=== PATIENT | female | born 1970 | race Caucasian/White ===

== ENCOUNTER 2016-11-28 15:21 | Emergency (ER) | payer OTHER ==
[2016-11-28 15:47] VITALS: BP 149/99; PULSE 70; RESP 18; TEMP 98.1; O2SAT 98
[2016-11-28 15:52] LABS: LEUKOCYTE ESTERASE,URINE NEGATIVE (NEGATIVE); NITRITE,URINE NEGATIVE (NEGATIVE); PH,URINE 5.5 (5.0-7.5)
[2016-11-28 15:53] LABS: COLOR PALE YELLOW
[2016-11-28 16:00] LABS: RBC,URINE OCCASIONAL /hpf (0-3); WBC,URINE NONE SEEN /hpf (0-3)
--- NOTE | 2016-11-28 16:20 | UCPHY ---
H & P Patient Type: Established Chief Complaint Nursing Narrative: low back pain started on , thinks may be a UTI, denies fevers or n/v, denies recent injury or trauma Time Seen by Provider: 11/28/16 15:40 HPI/ROS: On this patient reports onset of low back pain/flank pain achy and sharp in nature, 6 days prior to this visit. She thinks that was initially on 1 side but does recall which side and now it is bilateral. She has partial relief from ibuprofen and notes no other exacerbating factors. Currently the pain is 6/10 nonradiating. She had similar symptoms diagnosed with pyelonephritis here a few months ago so she came in for further evaluation. She notes no other associated symptoms. ROS: No fevers. No other constitutional symptoms. No recent trauma. HEENT: No complaints pulmonary: No complaints including no cough cardiovascular: No lightheadedness GI: No nausea or vomiting. : No dysuria frequency urgency. She has noticed any hematuria. Her last menstrual time timing was normal-2 weeks ago. 10 point ROS is otherwise negative. Source: Patient Exam Limitations: No limitations - Personal History Tetanus Vaccine Date: unsure - Medical/Surgical History PMH: Pyelonephritis C diff colitis after Cipro Hx Asthma: No Hx Chronic Respiratory Disease: No Hx Diabetes: No Hx Cardiac Disease: No Hx Renal Disease: No Hx Cirrhosis: No Hx Alcoholism: No Hx HIV/AIDS: No Hx Splenectomy or Spleen Trauma: No Other PMH: mastopexy, left wrist surg - Family History Significant Family History: No pertinent family hx - Social History Smoking Status: Never smoked Alcohol Use: Occasionally Drug Use: None Additional Social History: She went on a cruise and returned on November 19 - Physical Exam Exam: General Appearance: Alert, no distress. Eyes: Pupils equal and round no pallor or injection. ENT, Mouth: Mucous membranes moist. Respiratory: There are no retractions, lungs are clear to auscultation. Cardiovascular: Regular rate and rhythm. Gastrointestinal: Abdomen is soft and nontender, no masses, bowel sounds normal. Back: Positive lumbar versus CVA tenderness bilaterally. No significant midline tenderness. Straight leg raise is negative bilaterally. Neurological: Alert. GCS 15. Normal sensation bilateral lower extremities 5/5 strength in great toe dorsiflexion and plantar flexion bilaterally. She maintains 2+ symmetric patellar and Achilles DTRs bilaterally. Skin: Warm and dry, no rashes. Musculoskeletal: Neck is supple nontender. Extremities are symmetrical, full range of motion. Psychiatric: Mood and affect normal DIFFERENTIAL DIAGNOSIS: After history and physical exam differential diagnosis was considered for pyelonephritis, low back strain, ureteral stone, disc herniation Constitutional: Initial Vital Signs Temperature (C) 36.7 C 11/28/16 15:35 Heart Rate 70 11/28/16 15:35 Respiratory Rate 18 11/28/16 15:35 Blood Pressure 149/99 H 11/28/16 15:35 O2 Sat (%) 98 11/28/16 15:35 O2 Delivery Mode Room Air Allergies/Adverse Reactions: metronidazole [From Flagyl] Allergy (Verified 11/28/16 15:43) Home Medications: Medication Instructions Recorded Hydrocodone/APAP 5/325 [[place] 1 - 2 tab PO Q4PRN PRN #20 tab 11/28/16 5/325 (*)] Ibuprofen [Motrin (*)] 600 mg PO Q6 PRN #30 tab 11/28/16 Methocarbamol [Robaxin 750 mg (*)] 750 - 1,500 mg PO QID PRN #30 tab 11/28/16 Medical Decision Making - Diagnostics Imaging: CT abdomen pelvis rule out ureteral stone reveals no renal pathology , no hydronephrosis, no ureteral stone appreciated, normal appearing appendix, no significant degenerative changes in lumbar spine per Dr. Mccoy who read the scan ED Course/Re-evaluation: Urinalysis reveals hematuria-microscopic without findings for UTI Given her microscopic hematuria associated flank pain will proceed with CT to rule out ureteral stone. I counseled her regarding this. I Re discuss the patient's CT results with her. I suspect that she has low back strain given her negative workup. I counseled regarding this and demonstrated some low back stretches and other exercises that may help her back. - Data Points Laboratory Results: 11/28/16 11/28/16 15:45 15:45 Urine Color PALE YELLOW Urine Appearance CLEAR Urine pH 5.5 (5.0-7.5) Ur Specific [place] 1.010 (1.002-1.030) Urine Protein NEGATIVE (NEGATIVE) Urine Ketones NEGATIVE (NEGATIVE) Urine Blood 1+ H (NEGATIVE) Urine Nitrate NEGATIVE (NEGATIVE) Urine Bilirubin NEGATIVE (NEGATIVE) Urine Urobilinogen 0.2 EU EU (0.2-1.0) Ur Leukocyte Esterase NEGATIVE (NEGATIVE) Urine RBC OCCASIONAL /hpf /hpf (0-3) Urine WBC NONE SEEN /hpf /hpf (0-3) Ur Epithelial Cells TRACE /lpf /lpf (NONE-1+) Ur Culture Indicated? NOT INDICATED (NI) Urine Glucose NEGATIVE (NEGATIVE) Urine Test NEGATIVE Departure - Departure Disposition: Home, Routine, Self-Care Clinical Impression: Acute low back pain Qualifiers: Back pain laterality: bilateral Sciatica presence: without sciatica Qualified Code(s): M54.5 - Low back pain Condition: Good Instructions: Acute Low Back Pain (ED) Additional Instructions: DX: Low back strain Plan: Ibuprofen 400-600 mg per 6 hours regularly for the next week then as needed. Methocarbamol muscle relaxants as needed. Vicodin or Tylenol as needed for pain. No driving alcohol or work on Vicodin. Starts daily stretches prior to taking muscle relaxants and Vicodin in the morning. 3-5 minutes each of: "Butterfly stretch," "Sphinx stretch", "pigeon stretch", and hamstring stretch. Avoid lifting more than 5-10 pounds until symptoms improve. Call your primary care physician for a followup appointment in 3-7 days. Go to the emergency department for worsening of your symptoms despite the treatment plan. Referrals: NONE *PRIMARY CARE P,. [Primary Care Provider] - As per Instructions Prescriptions: Hydrocodone/APAP 5/325 [[place] 5/325 (*)] 1 - 2 tab PO Q4PRN PRN #20 tab PRN Reason: Pain Ibuprofen [Motrin (*)] 600 mg PO Q6 PRN #30 tab PRN Reason: Pain Methocarbamol [Robaxin 750 mg (*)] 750 - 1,500 mg PO QID PRN #30 tab PRN Reason: Muscle Spasms - PQRS PQRS Measurement: NA
== END 2016-11-28 17:15 | disposition home or self-care (01) ==
LOC: CED 15:21
DX: M54.5 Low back pain (principal)
CPT/HCPCS: 74176-PO; 81003-PO; 81015-PO; 81025-PO; 99214-PO; G0463-PO

== ENCOUNTER → 2017-05-16 | Outpatient (CLI) | payer OTHER | LOC: FIMAGING 09:17 | PROVIDERS: ATTEND Obstetrics & Gynecology | DX: Z12.31 Encounter for screening mammogram for malignant neoplasm of breast (principal) | CPT/HCPCS: G0202 ==

== ENCOUNTER → 2018-05-21 | Outpatient (CLI) | payer OTHER | LOC: CIMAGING 14:02 | PROVIDERS: ATTEND Obstetrics & Gynecology | DX: Z12.31 Encounter for screening mammogram for malignant neoplasm of breast (principal) ==